=== PATIENT | female | born 1955 | race Caucasian/White ===

== ENCOUNTER 2020-02-17 06:23 | Outpatient (REF) | payer MEDICARE, MEDICAID, SELFPAY ==
[2020-02-17 11:51] LABS: Alanine Aminotransferase 24 U/L (0-31); Aspartate Amino Transferase 23 U/L (5-31); Cholesterol 208 mg/dL; HDL Cholesterol 43 mg/dL; LDL Cholesterol Calculated 126 mg/dl; Triglycerides 195 mg/dL
== END 2020-02-17 06:24 | disposition home or self-care (01) ==
LOC: HO.HMGCLDS 06:23
PROVIDERS: PCP Internal Medicine; Visit Provider Internal Medicine
DX: E78.2 Mixed hyperlipidemia (principal)
CPT/HCPCS: 80061; 84450; 84460

== ENCOUNTER 2020-03-04 13:48 | Outpatient (REF) | payer MEDICARE, MEDICAID, SELFPAY | END 2020-03-04 13:49 | disposition home or self-care (01) | LOC: HO.HMGCLDS 13:48 | PROVIDERS: Visit Provider Internal Medicine | DX: Z20.828 Contact with and (suspected) exposure to other viral communicable diseases (principal) | CPT/HCPCS: C9803; U0003 ==

== ENCOUNTER 2020-08-25 06:06 | Outpatient (REF) | payer MEDICARE, MEDICAID, SELFPAY ==
[2020-08-25 12:11] LABS: Alanine Aminotransferase 36 U/L (0-31); Aspartate Amino Transferase 27 U/L (5-31); Cholesterol 267 mg/dL; HDL Cholesterol 48 mg/dL; Triglycerides 440 mg/dL
== END 2020-08-25 06:07 | disposition home or self-care (01) ==
LOC: HO.HMGCLDS 06:06
PROVIDERS: PCP Internal Medicine; Visit Provider Internal Medicine
DX: E78.2 Mixed hyperlipidemia (principal)
CPT/HCPCS: 36415; 80061; 84450; 84460

== ENCOUNTER 2020-12-03 06:59 | Outpatient (REF) | payer MEDICARE, MEDICAID, SELFPAY ==
[2020-12-03 11:32] LABS: Alanine Aminotransferase 17 U/L (0-31); Aspartate Amino Transferase 23 U/L (5-31); Cholesterol 196 mg/dL; HDL Cholesterol 41 mg/dL; LDL Cholesterol Calculated 119 mg/dl; Triglycerides 182 mg/dL
[2020-12-03 11:58] LABS: Vitamin D 25-OH Total 50.9 ng/mL (>30)
== END 2020-12-03 07:00 | disposition home or self-care (01) ==
LOC: HO.HMGCLDS 06:59
PROVIDERS: PCP Internal Medicine; Visit Provider Internal Medicine
DX: E78.2 Mixed hyperlipidemia (principal); Z78.0 Asymptomatic menopausal state
CPT/HCPCS: 36415; 80061; 82306; 82550; 84450; 84460

== ENCOUNTER 2021-02-17 16:29 | Outpatient (REF) | payer MEDICARE, MEDICAID, SELFPAY ==
[2021-02-17 17:19] LABS: Influenza A PCR NEGATIVE (Negative); Influenza B PCR NEGATIVE (Negative); Resp Syncy Virus RNA Qual PCR NEGATIVE (Negative); SARS COV2 PCR INHOUSE NEGATIVE (Negative)
== END 2021-02-17 16:30 | disposition home or self-care (01) ==
LOC: HO.LNP 16:29
PROVIDERS: Visit Provider Physician Assistant Medical
DX: Z20.822 Contact with and (suspected) exposure to COVID-19 (principal)
CPT/HCPCS: 0241U

== ENCOUNTER 2021-07-07 06:15 | Outpatient (REF) | payer MEDICARE, MEDICAID, SELFPAY ==
[2021-07-07 11:35] LABS: Alanine Aminotransferase 20 U/L (0-31); Aspartate Amino Transferase 26 U/L (5-31); Cholesterol 221 mg/dL; HDL Cholesterol 47 mg/dL; LDL Cholesterol Calculated 153 mg/dl; Triglycerides 105 mg/dL
[2021-07-07 11:53] LABS: Vitamin D 25-OH Total 47.9 ng/mL (>30)
== END 2021-07-07 06:16 | disposition home or self-care (01) ==
LOC: HO.HMGCLDS 06:15
PROVIDERS: Visit Provider Internal Medicine
DX: E78.2 Mixed hyperlipidemia (principal); M85.80 Other specified disorders of bone density and structure, unspecified site; Z78.0 Asymptomatic menopausal state
CPT/HCPCS: 36415; 80061; 82306; 82550; 84450; 84460

== ENCOUNTER 2022-03-31 06:30 | Outpatient (REF) | payer MEDICARE, MEDICAID, SELFPAY ==
[2022-03-31 11:31] LABS: Alanine Aminotransferase 20 U/L (0-31); Aspartate Amino Transferase 25 U/L (5-31); Cholesterol 219 mg/dL; Glucose Fasting 106 mg/dL (60-99); HDL Cholesterol 47 mg/dL; LDL Cholesterol Calculated 130 mg/dl; Triglycerides 210 mg/dL
[2022-03-31 11:48] LABS: Vitamin D 25-OH Total 44.4 ng/mL (>30)
== END 2022-03-31 06:31 | disposition home or self-care (01) ==
LOC: HO.HMGCLDS 06:30
PROVIDERS: PCP Internal Medicine; Visit Provider Internal Medicine
DX: M85.80 Other specified disorders of bone density and structure, unspecified site (principal); N95.9 Unspecified menopausal and perimenopausal disorder; R73.01 Impaired fasting glucose; E78.2 Mixed hyperlipidemia
CPT/HCPCS: 36415; 80061; 82306; 82550; 82947; 84450; 84460

== ENCOUNTER 2022-03-31 15:52 | Outpatient (REF) | payer MEDICARE, MEDICAID, SELFPAY ==
[2022-03-31 16:39] LABS: Appearance Urine Cloudy; Color Urine Dark Yellow; Glucose Urine UA Negative (Negative); Leukocyte Esterase Urine Moderate (2+) (Negative); Nitrite Urine Negative (Negative); PH 5.5 (5.0-9.0); UMIC TRIGGER UACC YES; Urine Blood Trace (Negative); Urine Ketones Negative (Negative); Urine Protein Negative (Neg-Trace)
[2022-03-31 16:42] LABS: Bacteria Urine Trace (None Seen); Hyaline Casts Urine 0-2 /LPF (0-2); Squamous Epithelial Cell Urine 0-2 /HPF (0-2); UACC Culture Trigger YES; WBC Urine >50 /HPF (0-5)
== END 2022-03-31 15:53 | disposition home or self-care (01) ==
LOC: HO.LAB 15:52
PROVIDERS: Visit Provider Physician Assistant Medical
DX: R30.0 Dysuria (principal); E78.5 Hyperlipidemia, unspecified; R73.01 Impaired fasting glucose; M85.80 Other specified disorders of bone density and structure, unspecified site; N95.9 Unspecified menopausal and perimenopausal disorder
CPT/HCPCS: 81001; 87086; 87088; 87186

== ENCOUNTER 2022-05-18 14:14 | Outpatient (REF) | payer MEDICARE, MEDICAID, SELFPAY | END 2022-05-18 14:15 | disposition home or self-care (01) | LOC: HO.LNP 14:14 | PROVIDERS: Visit Provider Internal Medicine | DX: N30.00 Acute cystitis without hematuria (principal) | CPT/HCPCS: 87086; 87088; 87186 ==

== ENCOUNTER 2022-06-11 10:05 | Outpatient (AMB) | payer MEDICARE, MEDICAID, SELFPAY ==
--- NOTE | 2022-06-11 10:32 | MHC.PC.OV ---
Vital Signs 06/11/22 10:33 Height 5 ft 2 in Weight 141 lb BMI 25.7 BP 110/80 Blood Pressure Location Lt brachial Position Sitting Pulse 95 Pulse Source Pulse Oximeter Temp 99.2 F Temp Source Oral Pulse Oximetry (%) 98 Oxygen Delivery Method Room Air Intake Visit Reasons: Sore throat Intake Note: Pt is here today c/o sore throat and sinus pressure Allergies Sulfa (Sulfonamide Antibiotics) Allergy (Unknown, Verified 06/11/22 10:42) hives atorvastatin Adverse Reaction (Unknown, Verified 06/11/22 10:42) diffuse muscle pain morphine Adverse Reaction (Unknown, Verified 06/11/22 10:42) vomiting IVP Dye Adverse Reaction (Unknown, Uncoded 06/11/22 10:42) vomiting Medication List - Last Reconciled 06/11/22 by Sandra Donato MD cholecalciferol (vitamin D3) 50 mcg PO DAILY lorazepam 0.5 mg PO DAILY PRN mometasone 0.1% appl topical omega-3 fatty acids (Fish Oil Concentrate) 1,000 mg PO DAILY pravastatin 40 mg PO DAILY vitamin B complex (B Complex-Vitamin B12 tablet) 1 tab PO DAILY Tobacco use date assessed: 06/11/22 Fall risk assessment: No Falls in past year Last assessed Fall Risk: 06/11/22 PFSH Medical History Cervicalgia Family history of rheumatoid arthritis Generalized anxiety disorder Impaired fasting glucose Lumbar degenerative disc disease Mixed dyslipidemia Multiple thyroid nodules Muscle spasm Osteoarthritis Osteopenia Polyarthralgia Right hip pain Trigger finger of all digits of right hand Surgical History History of section History of incision and drainage History of spinal fusion Status post trigger finger release Family History Father CVD (cardiovascular disease) Acute myocardial infarction Mother CVD (cardiovascular disease) Osteoporosis Hyperlipidemia Acute myocardial infarction Social History Housing: Apartment Alcohol intake: never Patient Tobacco Use Status: Former Tobacco user Years Smoked: 45 yrs e-Cigarette/Vaping Use: Never Used Current occupational status: retired Cognitive needs: No Hearing needs: No Vision needs: Yes Questionnaire Thrive Questionnaire Date Thrive assessed: 04/05/22 AUDIT C Alcohol Use Questionnaire (AUDIT-C) 1. How often do you have a drink containing alcohol?: Never Total Score: 0 KIN-7 AMB Questionnaire KIN-7 Date KIN - 7 assessed: 04/05/22 Source: Developed by Drs. Jordan Knox, Cydney Stovall, Faraz Foley and colleagues, with an educational hieu from [employer]. Physical exam (Primary Care) Vital Signs: Last Vital Signs Temp 99.2 F 06/11/22 10:33 Pulse 95 06/11/22 10:33 BP 110/80 06/11/22 10:33 Pulse Ox 98 06/11/22 10:33 Oxygen Delivery Method Room Air 06/11/22 10:33 BMI result Body Mass Index 25.7 Tobacco/Smoking Status: Tobacco use Status Tobacco use date assessed 06/11/22 06/11/22 10:38 Patient Tobacco Use Status Former Tobacco user 06/11/22 10:38 e-Cigarette/Vaping Use Never Used 06/11/22 10:38 Thrive Assessment: Date of Thrive Assessment Date Thrive assessed 04/05/22 06/11/22 10:38 Results AMB Rapid Strep AMB Rapid Strep Negative Last Edit by Eufemia Cope CMA on 06/11/22 10:40 Results Reviewed Results Reviewed: Laboratory Last Values Strep Scn Rapid Clinic Negative 06/11/22 10:39 Assessment and Plan Assessment & Plan (1) Acute pharyngitis: Code(s): J02.9 - Acute pharyngitis, unspecified Plan: A rapid strep test came back negative, will empirically placed on amoxicillin however 875 mg per capsule to take 1 every 12 hours for 10 days. Normal do warm saline gargles. Take Tylenol alternating with an ibuprofen every 6 hours as needed for generalized body aches and headache. Orders: Orders AMB Rapid Strep Screen Today Z13.9 - Encounter for screening, unspecified Medications: New amoxicillin 875 mg PO Q12H 10 days 20 tabs 0RF Coding Level of Care Code Est Pt Level 3 (07205) Diagnoses Acute pharyngitis J02.9
[2022-06-11 10:33] VITALS: BP 110/80; PULSE 95; TEMP 37.3; O2SAT 98; BMI 25.7
== END 2022-06-11 11:10 | disposition home or self-care (01) ==
LOC: HO.HMGC 10:05
PROVIDERS: PCP Internal Medicine; Visit Provider Internal Medicine
DX: J02.9 Acute pharyngitis, unspecified (principal)
CPT/HCPCS: 99499

== ENCOUNTER 2022-10-19 14:54 | Emergency (ER) | payer MEDICARE, MEDICAID, SELFPAY ==
--- NOTE | ~2022-10-19 | CT_ITS ---
EXAMINATION: CT ABDOMEN AND PELVIS WITHOUT CONTRAST CLINICAL INFORMATION: Image area with flank pain COMPARISON: None available. TECHNIQUE: Multidetector volumetric imaging was performed from the superior aspect of the liver through the pubic symphysis. Sagittal and coronal reformatted images were obtained on the technologist's workstation. This CT examination was performed using dose optimization techniques as appropriate, variously including the following: *Automated exposure control *Adjustment of mA and/or kV according to patient size (this includes techniques or standardized protocols for targeted exams where dose is matched to indication/reason for exam; i.e. extremities or head) *Use of iterative reconstruction technique DLP: 484 mGy-cm FINDINGS: LUNG BASES: Mild basilar atelectasis or scarring. LIVER, GALLBLADDER, AND BILIARY TREE: The liver is normal in size, shape, and attenuation. No focal hepatic lesion or biliary ductal dilatation is present. The gallbladder is unremarkable with no evidence of radiopaque gallstones, gallbladder wall thickening, or obvious pericholecystic inflammatory changes. PANCREAS: Unremarkable. SPLEEN: Unremarkable. ADRENAL GLANDS: Unremarkable. KIDNEYS AND URETERS: Numerous bilateral calculi. Probable cystic change There is hydronephrosis on the left. This does lead up to several calculi in the distal left ureter. These are stacked on one another. The more superior measures 3 mm. The mid calculus measuring 5 mm and the distal calculus measuring 6 mm. BLADDER: Unremarkable. GASTROINTESTINAL TRACT: Nonobstructing bowel pattern. The appendix is felt to be within normal limits. ABDOMINAL WALL: No significant hernia is appreciated. LYMPH NODES: There is no bulky adenopathy. Some mild periaortic nodes are noted VASCULAR: Atherosclerotic changes are noted. PELVIC VISCERA: Mildly prominent left adnexal structure containing calcifications. OSSEOUS STRUCTURES: Unremarkable. CT/CT abdomen pelvis wo IV con IMPRESSION: Moderate hydronephrosis on the left caused by 3 calculi which are stacked in the distal left ureter. Otherwise numerous calculi in the right and left kidney with probable cystic change Other findings are as described above. Fleischner guidelines were followed.
--- NOTE | 2022-10-19 15:12 | ED.GENADULT ---
HPI - General Adult General Chief complaint: Urogenital-Female Stated complaint: Blood in Urine Pressure Time Seen by Provider: 10/19/22 18:57 Source: patient Mode of arrival: ambulatory Limitations: no limitations History of Present Illness HPI narrative: Patient is a 67-year-old female who presents emergency department for evaluation of dysuria, bladder pressure, and hematuria. Symptom onset was approximately 10 days ago. She was evaluated by her urologist Dr. Mendoza, she thought that she had a urinary tract infection but she was advised that the urinalysis did not support this. Last night she began with pain to the left flank which has been intermittent. Reports a history of kidney stones not having previously required any procedural intervention. Denies fevers, chills, nausea, vomiting, pelvic pain, abnormal vaginal discharge, diarrhea, constipation, bloody or dark stools Related Data Home Medications Medication Instructions Recorded Confirmed cholecalciferol (vitamin D3) 50 50 mcg PO DAILY 02/23/20 06/11/22 mcg (2,000 unit) capsule mometasone 0.1 % topical cream appl topical 02/23/20 06/11/22 omega-3 fatty acids 1,000 mg 1,000 mg PO DAILY 02/23/20 06/11/22 capsule (Fish Oil Concentrate) vitamin B complex (B 1 tab PO DAILY 09/15/21 06/11/22 Complex-Vitamin B12 tablet) Previous Rx's Medication Instructions Recorded pravastatin 40 mg tablet 40 mg PO DAILY #90 tabs 02/09/22 lorazepam 0.5 mg tablet 0.5 mg PO DAILY PRN anxiety #14 05/29/22 tabs amoxicillin 875 mg tablet 875 mg PO Q12H 10 days #20 tabs 06/11/22 azithromycin 250 mg tablet 250 mg PO DAILY 5 days #6 tabs 06/17/22 ibuprofen 600 mg tablet 600 mg PO Q8H PRN pain #20 tabs 10/19/22 prednisone 20 mg tablet 40 mg PO DAILY 5 days #10 tabs 10/19/22 tamsulosin 0.4 mg capsule 0.4 mg PO DAILY #7 caps 10/19/22 tramadol 50 mg tablet 50 mg PO Q8H PRN pain #14 tabs 10/19/22 Allergies Allergy/AdvReac Type Severity Reaction Status Date / Time Sulfa (Sulfonamide Allergy Unknown hives Verified 06/11/22 10:42 Antibiotics) atorvastatin AdvReac Unknown diffuse Verified 06/11/22 10:42 muscle pain morphine AdvReac Unknown vomiting Verified 06/11/22 10:42 IVP Dye AdvReac Unknown vomiting Uncoded 06/11/22 10:42 Review of Systems Review of Systems: Constitutional : No Weight loss, No Fever, No Chills ENT/Mouth :? No sore throat, No Rhinorrhea Eyes: No Swelling, No Redness Cardiovascular : No Chest Pain, No SOB, No Edema Respiratory : No Cough, No Sputum, No Wheezing Gastrointestinal : No Nausea, no Vomiting, no Diarrhea, positive abdominal pain, No Hematochezia, No Melena Genitourinary : Positive Dysuria, No Urinary Frequency, positive Hematuria, No Urgency? Musculoskeletal : No joint pain, No Myalgias, No Joint Swelling Skin : No Skin Lesions, No rash Neuro : No Weakness, No Numbness, No Dizziness, No Headache Psych : No Anxiety/Panic, No Depression Heme/Lymph: No Bruising, No Lymphadenopathy Endocrine : No Polyuria, No Polydipsia Yes all other systems are reviewed and are negative [facility] Past Medical History Attestation statement: The following information was validated with the patient. Medical History Cervicalgia Family history of rheumatoid arthritis Generalized anxiety disorder Impaired fasting glucose Lumbar degenerative disc disease Mixed dyslipidemia Multiple thyroid nodules Muscle spasm Osteoarthritis Osteopenia Polyarthralgia Right hip pain Trigger finger of all digits of right hand Surgical History History of section History of incision and drainage History of spinal fusion Status post trigger finger release Family History Family History Father CVD (cardiovascular disease) Acute myocardial infarction Mother CVD (cardiovascular disease) Osteoporosis Hyperlipidemia Acute myocardial infarction Social History Social History Housing: Apartment Alcohol intake: never Patient Tobacco Use Status: Former Tobacco user Years Smoked: 45 yrs Smoked in Last 30 Days: No e-Cigarette/Vaping Use: Never Used Use of substances other than those prescribed or required for medical reasons: No Advance Directives: No Advance Directives Information Provided: Yes Current occupational status: retired Cognitive needs: No Hearing needs: No Vision needs: Yes Physical Exam ED Vital Signs: Vital Signs - 24 hr 10/19/22 15:13 10/19/22 20:08 10/19/22 21:43 Temperature 98.3 F 98.2 F 97.8 F Pulse Rate 83 57 58 Respiratory Rate 16 16 18 Blood Pressure 150/61 H 135/62 117/66 Pulse Oximetry 98 96 95 Oxygen Delivery Method Room Air Room Air Room Air BMI result Body Mass Index 24.0 Appearance: Alert.?Oriented to person, place and time. No acute distress.?Normal affect. Eyes: Pupils equal, round and reactive to light.? ENT: Pharynx normal.?? Neck: Normal inspection.? Neck supple.?? CVS: Heart sounds normal. Normal heart rate and rhythm.? Pulses normal.?? Respiratory: No respiratory distress.? Lung sounds clear to auscultation bilaterally?? Abdomen: Soft and non-tender. Normoactive bowel sounds. Positive left CVA tenderness Skin: Skin warm and dry.? Normal skin color.? Extremities: No lower extremity edema.? Neuro: Moves all extremities spontaneously. Sensation intact bilaterally. No focal neuro deficits. Ambulates with normal steady gait. Course Course Course Narrative: This is a rapid medical exam: Additional HPI, ROS, PE not included below will be deferred to primary provider. Patient is a 67-year-old female with complaint of dysuria, bladder pressure, hematuria for a week. Saw urologist Dr. Mendoza, on Saturday but was told she did not have a UTI so was sent home. Reports left flank pain last night, today off and on. Denies fevers. Plan: UA, labs Reevaluation(s) Reevaluation #1: CT revealing 3 calculi stacked in the distal left ureter with mild after at hydronephrosis, measuring 3 mm, 5 mm, 6 mm. She reports significant improvement in her pain after receiving tramadol. She would like to be discharged at this time and follow-up with her urologist which I think is appropriate. Will send prescription for tamsulosin, prednisone, ibuprofen, and tramadol to pharmacy. Reviewed worrisome signs and symptoms that would warrant re-evaluation in the emergency department. All questions were answered. Stable for discharge. Time: 22:09 Medications Administered Discontinued Medications Generic Name Dose Route Start Last Admin Trade Name Freq PRN Reason Stop Dose Admin Sodium Chloride 1,000 mls @ 999 mls/hr 10/19/22 19:00 10/19/22 19:12 Ns IV 10/19/22 20:00 999 mls/hr .Q1H1M ALIE Administration Ketorolac Tromethamine 30 mg 10/19/22 16:52 10/19/22 16:55 Ketorolac Tromethamine 30 Mg/Ml Vial IM 10/19/22 16:53 30 mg ONCE ONE Administration Tramadol HCl 50 mg 10/19/22 19:57 10/19/22 20:07 Tramadol Hcl 50 Mg Tablet PO 10/19/22 19:58 50 mg ONCE ONE Administration Medical Decision Making Medical Decision Making [facility] Narrative: Patient is a 67-year-old female presents emergency department for evaluation of dysuria and left flank pain. At the time my examination she is overall well-appearing, though she does appear uncomfortable. She is afebrile without tachycardia. Will obtain CBC to evaluate for leukocytosis/ anemia, CMP and lipase to evaluate for abnormal electrolytes /abnormal renal function/ abnormal hepatic/biliary function, CT and abd pelvis, and Urinalysis. Clinically lower suspicion for appendicitis or diverticulitis at this time. 1 L normal saline IV fluid, tramadol for pain as she has an allergy with severe vomiting to morphine though she has tolerated tramadol in the past Differential Diagnosis Differential Diagnoses: The differential diagnosis associated with the presentation includes (Pyelonephritis, urinary tract infection, hydronephrosis, ureteral calculi, diverticulitis, appendicitis) Admission/Observation Consideration of admission/observation: Escalation of care including admission/observation considered (I considered admission for abdominal pain, see course narrative for further detail) Lab Data [facility] Lab Attestation statement: I reviewed the patient's lab results. CBC reveals no leukocytosis, no anemia, CMP overall unremarkable aside from elevated BUN at 31 and creatinine 1.29, do not have prior labs available for comparison, patient is unaware baseline renal function. Patient received 1 L normal saline IV fluid. Urinalysis revealing microscopic hematuria, white blood cells, without urine bacteria present. 10/19/22 15:45 10/19/22 15:45 Labs: Lab Results 10/19/22 10/19/22 10/19/22 Range/Units 15:45 15:45 15:45 WBC 8.4 (4.8-10.8) X10*3/uL RBC 4.10 L (4.20-5.50) X10*6/uL Hgb 12.7 (12.0-16.0) g/dl Hct 37.1 (37.0-47.0) % MCV 90.5 (80.0-98.0) fL MCH 31.0 (27.0-33.0) pg MCHC 34.2 (31.0-35.0) g/dl RDW 11.8 (11.0-16.0) % Plt Count 257 (160-400) X10*3/uL MPV 9.1 L (9.4-12.3) fL Immature Gran % (Auto) 0.2 (0.0-0.4) % Neut % (Auto) 60.4 (45-73) % Lymph % (Auto) 25.4 (20-40) % [place] % (Auto) 11.4 H (2-11) % Eos % (Auto) 2.1 (0-4) % Baso % (Auto) 0.5 (0-2) % Lymph # (Auto) 2.1 (1.2-4.9) X10*3/uL [place] # (Auto) 1.0 (0.1-1.2) X10*3/uL Eos # (Auto) 0.2 (0.0-0.4) X10*3/uL Baso # (Auto) 0.0 (0.0-0.2) X10*3/uL Abs Immat Gran (auto) 0.02 (0.00-0.03) X10*3/uL Absolute Neuts (auto) 5.1 (2.0-8.3) x10*3/uL Absolute Nucleated RBC 0.000 (0.0-0.012) X10*3/uL Nucleated RBC % (auto) 0.0 (0.0-0.2) /100WBC Sodium 137 (135-145) mmol/L Potassium 4.7 (3.3-5.1) mmol/L Chloride 106 (96-108) mmol/L Carbon Dioxide 20 L (22-29) mmol/L Anion Gap 16 (12-20) BUN 31 H (9-16) mg/dL Creatinine 1.29 (0.5-1.4) mg/dL Estim Creat Clear Calc 38.6 Estimated GFR 41 Random Glucose 94 (60-115) mg/dL Calcium 9.4 (8.4-10.2) mg/dL Total Bilirubin 0.5 (0.0-1.0) mg/dL AST 19 (5-31) U/L ALT 11 (0-31) U/L Alkaline Phosphatase 96 (39-117) U/L Total Protein 7.7 (6.5-8.0) g/dL Albumin 4.0 (3.5-5.0) g/dL Urine Color Yellow Urine Appearance Clear Urine pH 5.5 (5.0-9.0) Ur Specific Blanch 1.020 (1.005-1.025) Urine Protein Trace (Neg-Trace) mg/dL Urine Glucose (UA) Negative (Negative) mg/dL Urine Ketones Negative (Negative) mg/dL Urine Blood Small (1+) H (Negative) Urine Nitrite Negative (Negative) Ur Leukocyte Esterase Moderate (2+) H (Negative) Urine RBC 0-2 (0-2) /HPF Urine WBC >50 H (0-5) /HPF Ur Squamous Epith Cells 6-10 (0-2) /HPF Urine Bacteria None Seen (None Seen) Hyaline Casts 0-2 (0-2) /LPF Independent Interpretation I performed an independent interpretation of an: CT Scan ( I reviewed CT imaging and agree with radiologist's impression, positive hydronephrosis secondary to calculi) Radiology Impression Discussion of test interpretation with radiology: I have reviewed the radiologist's reading. Radiologist Impression: CT/CT abdomen pelvis wo IV con IMPRESSION: Moderate hydronephrosis on the left caused by 3 calculi which are stacked in the distal left ureter. ? Otherwise numerous calculi in the right and left kidney with probable cystic change ? Other findings are as described above.? ? Fleischner guidelines were followed. Independent Historian Clinical information obtained from an independent historian. History obtained from or confirmed by: Other (Patient's daughters present at bedside who confirms history.) Discharge Plan Discharge Clinical Impression: Hydronephrosis with ureteral calculus Patient Disposition: Home, Self-Care Instructions: Hydronephrosis (ED), Ureteral Stones (ED) Additional Instructions: As discussed, the CT scan shows that you have 3 kidney stones stacked on top of 1 another in your ureter. Please take the medications as prescribed and follow-up with your urologist. You may return back to the emergency department any new or worsening symptoms or concerns. Prescriptions: New prednisone 20 mg tablet 40 mg PO DAILY 5 Days Qty: 10 0RF tamsulosin 0.4 mg capsule 0.4 mg PO DAILY Qty: 7 0RF ibuprofen 600 mg tablet 600 mg PO Q8H PRN (Reason: pain) Qty: 20 0RF tramadol 50 mg tablet 50 mg PO Q8H PRN (Reason: pain) Qty: 14 0RF No Action pravastatin 40 mg tablet 40 mg PO DAILY Qty: 90 1RF lorazepam 0.5 mg tablet 0.5 mg PO DAILY PRN (Reason: anxiety) Qty: 14 0RF azithromycin 250 mg tablet 250 mg PO DAILY 5 Days Qty: 6 0RF Rx Instructions: Take 2 tabs the first day, then take 1 tab for the next 4 days cholecalciferol (vitamin D3) 50 mcg (2,000 unit) capsule 50 mcg PO DAILY omega-3 fatty acids [Fish Oil Concentrate] 1,000 mg capsule 1,000 mg PO DAILY mometasone 0.1 % cream topical vitamin B complex [B Complex-Vitamin B12] Tablet 1 tab PO DAILY amoxicillin 875 mg tablet 875 mg PO Q12H 10 Days Qty: 20 0RF Referrals: Josey Mann MD [Primary Care Provider] -
[2022-10-19 15:13] VITALS: BP 150/61; PULSE 83; RESP 16; TEMP 36.8; O2SAT 98; BMI 24.0
[2022-10-19 15:52] LABS: MANUAL DIFF FLAG NO
[2022-10-19 16:07] LABS: Appearance Urine Clear; Basophils Percent Auto 0.5 % (0-2); Color Urine Yellow; Eosinophils Absolute Auto 0.2 X10*3/uL (0.0-0.4); Eosinophils Percent Auto 2.1 % (0-4); Glucose Urine UA Negative (Negative); Hematocrit 37.1 % (37.0-47.0); Hemoglobin 12.7 g/dl (12.0-16.0); Imm Gran Abs Auto 0.02 X10*3/uL (0.00-0.03); Imm Gran Pct Auto 0.2 % (0.0-0.4); Leukocyte Esterase Urine Moderate (2+) (Negative); Lymphocytes Absolute Auto 2.1 X10*3/uL (1.2-4.9); Lymphocytes Percent Auto 25.4 % (20-40); Mean Corpuscular HGB Conc 34.2 g/dl (31.0-35.0); Mean Corpuscular Volume 90.5 fL (80.0-98.0); Mean Platelet Volume 9.1 fL (9.4-12.3); Monocytes Percent Auto 11.4 % (2-11); Neutrophils Absolute Auto 5.1 x10*3/uL (2.0-8.3); Neutrophils Percent Auto 60.4 % (45-73); Nitrite Urine Negative (Negative); PH 5.5 (5.0-9.0); Platelet Count 257 X10*3/uL (160-400); Red Cell Distribution Width 11.8 % (11.0-16.0); UMIC TRIGGER UACC YES; Urine Blood Small (1+) (Negative); Urine Ketones Negative (Negative); Urine Protein Trace mg/dL (Neg-Trace); White Blood Count 8.4 X10*3/uL (4.8-10.8)
[2022-10-19 16:21] LABS: Alanine Aminotransferase 11 U/L (0-31); Alkaline Phosphatase 96 U/L (39-117); Anion Gap 16 (12-20); Aspartate Amino Transferase 19 U/L (5-31); Bilirubin Total 0.5 mg/dL (0.0-1.0); Blood Urea Nitrogen 31 mg/dL (9-16); Calcium 9.4 mg/dL (8.4-10.2); Carbon Dioxide 20 mmol/L (22-29); Chloride 106 mmol/L (96-108); Creatinine Clr Calc Pharmacy 38.6; Estimated Glomerular Filt Rate 41; Glucose Random 94 mg/dL (60-115); Potassium 4.7 mmol/L (3.3-5.1); Sodium 137 mmol/L (135-145); Total Protein 7.7 g/dL (6.5-8.0)
[2022-10-19 16:23] LABS: Bacteria Urine None Seen (None Seen); Hyaline Casts Urine 0-2 /LPF (0-2); RBC Urine 0-2 /HPF (0-2); UACC Culture Trigger YES; WBC Urine >50 /HPF (0-5)
[2022-10-19] MEDS: Ketorolac Tromethamine 30 MG/ML VIAL IM (16:55)
[2022-10-19] MEDS: 0.9 % Sodium Chloride 1,000 ML 999 ML IV (19:12)
[2022-10-19] MEDS: traMADoL HCL 50 MG TABLET PO (20:07)
[2022-10-19 20:08] VITALS: BP 135/62; PULSE 57; RESP 16; TEMP 36.8; O2SAT 96
--- NOTE | 2022-10-19 20:19 | PC.NURSE ---
this rn assumed care of pt from previous shift at 1900. pt clam and cooperative. pt daughter at bedside. iv placed 20g L AC. pt medicated according to may. pt awaiting CT scan
[2022-10-19 21:43] VITALS: BP 117/66; PULSE 58; RESP 18; TEMP 36.6; O2SAT 95
--- NOTE | 2022-10-19 22:43 | PC.NURSE ---
iv removed at discharge. pt calm and cooperative. pt daughter at bedside. vss. pt ambulatory at discharge. pt provided with discharge packet. pt verbalized understanding of discharge plan
== END 2022-10-19 22:45 | disposition home or self-care (01) ==
PROVIDERS: Registered Nurse Emergency; Emergency Provider Emergency Medicine; PCP Internal Medicine
DX: N13.2 Hydronephrosis with renal and ureteral calculous obstruction (principal); R30.0 Dysuria; R31.9 Hematuria, unspecified; R10.2 Pelvic and perineal pain; Z87.891 Personal history of nicotine dependence; Z79.899 Other long term (current) drug therapy
CPT/HCPCS: 36415; 74176; 80053; 81001; 81003; 85025; 87086; 96360; 96361; 96372; 99284; J1885